=== PATIENT | female | born 1935 | race Caucasian/White ===

== ENCOUNTER 2016-11-08 18:14 | Inpatient (IN) | payer MEDICARE, OTHER ==
[~2016-11-08] VITALS: Ht 167.6 cm; Wt 65.5 kg
[~2016-11-08 18:14] MED LIST: ALDACTONE 25MG25 M1 PO; ALTACE 2.5MG T2.5 MG PO; CENTRUM SILVER1 CTB PO; COUMADIN4 MG PO; IMDUR 30MG30 MG/TAB PO; LASIX 20MG TABL20 MG PO; OSCAL 500 TAB500 MG PO; PLAVIX 75MG TAB75 MG PO; SYNTHROID0.05 MG/TA PO; TOPROL XL 50MG50 MG PO; VITAMIN D 400400 IU; ZOCOR 40MG40 MG PO
[2016-11-08 19:11] LABS: BASO % 0.3 % (0.0-2.0); EOS % 0.2 % (0-4.0); GRAN # 9.2 (1.4-6.5); GRAN % 76.1 % (42.2-75.2); HEMATOCRIT 32.3 % (37.0-47.0); HEMOGLOBIN 10.9 g/dl (12.5-16.0); LYMPH # 1.7 (1.2-3.4); LYMPH % 14.5 % (20.0-51.0); MEAN CELL VOLUME 96 fl (80.0-100.0); MEAN CORPUSCULAR HEMOGLOBIN 32 pg (27.0-31.0); MEAN CORPUSCULAR HGB CONC 34 g/dl (33.0-37.0); MEAN PLATELET VOLUME 10.2 fl (7.4-10.4); MONO % 8.5 % (1.7-9.3); PLATELET COUNT 175 K/mm3 (130-400); RED BLOOD COUNT 3.38 M/mm3 (4.10-5.30); REDCELL DISTRIBUTION WIDTH-CV 12.8 % (11.5-14.5)
[2016-11-08 19:15] LABS: INR 6.3 (0.8-3.0); PARTIAL THROMBOPLASTIN TIME 49.8 SECONDS (26.0-37.0); PROTHROMBIN TIME 73.6 SECONDS (9.7-12.8)
[2016-11-08 19:19] LABS: ADJUSTED CALCIUM 9.7 mg/dL (8.4-10.2); ALBUMIN 3.8 gm/dL (3.5-5.0); BILIRUBIN,TOTAL 0.9 mg/dL (0.0-1.0); CALCIUM 9.5 mg/dL (8.4-10.2); CREATININE, serum 1.1 mg/dL (0.52-1.25); POTASSIUM 3.6 mmol/L (3.4-5.0); TOTAL PROTEIN 6.7 gm/dL (6.4-8.2)
[2016-11-08 19:55] LABS: C-REACTIVE PROTEIN 20.4 mg/dL (0.0-0.9)
[2016-11-08 20:24] LABS: PH 6 (5-8); SQUAMOUS EPITHELIAL 0-2 /hpf; URINE APPEARANCE Clear; URINE BACTERIA None Seen /hpf; URINE BILIRUBIN Negative (NEGATIVE); URINE BLOOD 1+ (NEGATIVE); URINE COLOR Yellow; URINE GLUCOSE Negative (NEGATIVE); URINE KETONE Negative (NEGATIVE); URINE UROBILINOGEN Negative (NEGATIVE)
[2016-11-08 22:43] VITALS: BP 128/52; PULSE 51; TEMP 98.5
[2016-11-09 03:28] VITALS: BP 125/50; PULSE 71; TEMP 98.6
[2016-11-09 07:35] LABS: BASO % 0.3 % (0.0-2.0); EOS % 0.2 % (0-4.0); GRAN # 10.1 (1.4-6.5); GRAN % 79.2 % (42.2-75.2); INR 3.5 (0.8-3.0); LYMPH # 1.6 (1.2-3.4); LYMPH % 12.1 % (20.0-51.0); MEAN CELL VOLUME 97 fl (80.0-100.0); MEAN CORPUSCULAR HGB CONC 33 g/dl (33.0-37.0); MEAN PLATELET VOLUME 10.6 fl (7.4-10.4); PLATELET COUNT 179 K/mm3 (130-400); PROTHROMBIN TIME 40.4 SECONDS (9.7-12.8); RED BLOOD COUNT 3.44 M/mm3 (4.10-5.30); REDCELL DISTRIBUTION WIDTH-CV 13.1 % (11.5-14.5); WHITE BLOOD COUNT 12.8 K/mm3 (4.8-10.8)
[2016-11-09 07:41] VITALS: BP 116/35; PULSE 73; TEMP 98.8
[2016-11-09 07:48] LABS: CALCIUM 9.3 mg/dL (8.4-10.2); CREATININE, serum 0.93 mg/dL (0.52-1.25); POTASSIUM 3.7 mmol/L (3.4-5.0)
[2016-11-09 08:19] LABS: HEMATOCRIT 33.4 % (37.0-47.0); MEAN CORPUSCULAR HEMOGLOBIN 32 pg (27.0-31.0)
[2016-11-09 11:19] VITALS: BP 114/48; PULSE 83; TEMP 98.7
[2016-11-09 15:26] VITALS: BP 116/45; PULSE 66; TEMP 98.7
[2016-11-09 17:16] LABS: BASO % 0.3 % (0.0-2.0); EOS % 0.1 % (0-4.0); GRAN # 9.3 (1.4-6.5); GRAN % 79.4 % (42.2-75.2); LYMPH # 1.3 (1.2-3.4); LYMPH % 11.2 % (20.0-51.0); MEAN CELL VOLUME 96 fl (80.0-100.0); MEAN CORPUSCULAR HGB CONC 34 g/dl (33.0-37.0); MONO % 8.6 % (1.7-9.3); PLATELET COUNT 165 K/mm3 (130-400); RED BLOOD COUNT 3.05 M/mm3 (4.10-5.30); WHITE BLOOD COUNT 11.7 K/mm3 (4.8-10.8)
[2016-11-09 17:17] LABS: HEMATOCRIT 29.2 % (37.0-47.0); MEAN CORPUSCULAR HEMOGLOBIN 33 pg (27.0-31.0)
[2016-11-09 17:26] LABS: CALCIUM 8.7 mg/dL (8.4-10.2); CREATININE, serum 0.91 mg/dL (0.52-1.25); POTASSIUM 3.8 mmol/L (3.4-5.0)
[2016-11-09 19:50] VITALS: BP 133/67; PULSE 91; TEMP 98.9
[2016-11-10] VITALS (13 sets, daily range): BP systolic 111–149; BP diastolic 46–69; PULSE 69–96; TEMP 98.5–99.2
[2016-11-10 12:28] LABS: INR 2.1 (0.8-3.0); PROTHROMBIN TIME 24.1 SECONDS (9.7-12.8)
[2016-11-10 12:39] LABS: HEMATOCRIT 31.6 % (37.0-47.0); HEMOGLOBIN 10.5 g/dl (12.5-16.0)
[2016-11-11 03:49] VITALS: BP 138/63; PULSE 77; TEMP 98.4
[2016-11-11 08:13] LABS: BASO # 0.1 (0.0-0.2); BASO % 0.5 % (0.0-2.0); EOS % 0.2 % (0-4.0); GRAN # 8.7 (1.4-6.5); GRAN % 81.3 % (42.2-75.2); LYMPH # 0.9 (1.2-3.4); LYMPH % 8.7 % (20.0-51.0); MEAN CELL VOLUME 99 fl (80.0-100.0); MEAN CORPUSCULAR HGB CONC 33 g/dl (33.0-37.0); MEAN PLATELET VOLUME 10.1 fl (7.4-10.4); MONO # 0.9 (0.1-0.6); MONO % 8.8 % (1.7-9.3); PLATELET COUNT 193 K/mm3 (130-400); RED BLOOD COUNT 3.07 M/mm3 (4.10-5.30); REDCELL DISTRIBUTION WIDTH-CV 13.2 % (11.5-14.5); WHITE BLOOD COUNT 10.7 K/mm3 (4.8-10.8)
[2016-11-11 08:17] LABS: INR 2.5 (0.8-3.0); PROTHROMBIN TIME 28.9 SECONDS (9.7-12.8)
[2016-11-11 08:29] LABS: HEMATOCRIT 30.3 % (37.0-47.0); HEMOGLOBIN 9.9 g/dl (12.5-16.0); MEAN CORPUSCULAR HEMOGLOBIN 32 pg (27.0-31.0)
[2016-11-11 08:44] LABS: CALCIUM 8.5 mg/dL (8.4-10.2); CREATININE, serum 0.76 mg/dL (0.52-1.25)
[2016-11-11 08:50] VITALS: BP 143/50; PULSE 92; TEMP 97.9
[2016-11-11] MEDS ORDERED: COUMADIN4 MG PO (11:26)
[2016-11-11] MEDS ORDERED: ROBITUSSIN A-C S1 M1 PO (11:33)
[2016-11-11 12:39] VITALS: BP 135/58; PULSE 81; TEMP 97.9
[2016-11-11 17:04] VITALS: BP 139/64; PULSE 85; TEMP 98.9
[2016-11-11 20:24] VITALS: BP 134/87; PULSE 81; TEMP 98.5
[2016-11-11 22:45] VITALS: BP 138/61; PULSE 78; TEMP 98.2
[2016-11-12 04:53] VITALS: BP 127/63; PULSE 75; TEMP 98.5
[2016-11-12 07:42] VITALS: BP 126/53; PULSE 45; PULSE 85; TEMP 98.7
[2016-11-12 08:17] LABS: BASO % 0.4 % (0.0-2.0); EOS # 0.1 (0.0-0.7); EOS % 1.4 % (0-4.0); GRAN # 5.1 (1.4-6.5); LYMPH # 1.6 (1.2-3.4); LYMPH % 20.1 % (20.0-51.0); MEAN CELL VOLUME 95 fl (80.0-100.0); MEAN CORPUSCULAR HGB CONC 33 g/dl (33.0-37.0); MEAN PLATELET VOLUME 9.9 fl (7.4-10.4); MONO # 0.9 (0.1-0.6); MONO % 11.8 % (1.7-9.3); PLATELET COUNT 214 K/mm3 (130-400); RED BLOOD COUNT 3.29 M/mm3 (4.10-5.30); REDCELL DISTRIBUTION WIDTH-CV 12.9 % (11.5-14.5); WHITE BLOOD COUNT 7.7 K/mm3 (4.8-10.8)
[2016-11-12 08:19] LABS: INR 3.2 (0.8-3.0); PROTHROMBIN TIME 36.7 SECONDS (9.7-12.8)
[2016-11-12 08:26] LABS: HEMATOCRIT 31.3 % (37.0-47.0); HEMOGLOBIN 10.3 g/dl (12.5-16.0); MEAN CORPUSCULAR HEMOGLOBIN 31 pg (27.0-31.0)
[2016-11-12 08:44] LABS: CALCIUM 8.6 mg/dL (8.4-10.2); CREATININE, serum 0.82 mg/dL (0.52-1.25); POTASSIUM 3.1 mmol/L (3.4-5.0)
[2016-11-12] MEDS ORDERED: COUMADIN 3MG3 MG/TAB PO ×2 (10:31→12:33)
[2016-11-12 11:15] VITALS: BP 122/62; PULSE 85; TEMP 98.2
== END 2016-11-12 15:08 | disposition home or self-care (01) | DRG 377 ==
LOC: COL.ER 18:14 → MEDICAL 21:16
PROVIDERS: Emergency Medicine; Family Medicine; Internal Medicine; Internal Medicine Cardiovascular Disease; Internal Medicine Gastroenterology; Physician Assistant
PROC: 0DJ08ZZ Inspection of Upper Intestinal Tract, Via Natural or Artificial Opening Endoscopic (ICD-10-PCS; principal; 2016-11-10 14:00)
PROC: 0DJD8ZZ Inspection of Lower Intestinal Tract, Via Natural or Artificial Opening Endoscopic (ICD-10-PCS; 2016-11-10 14:00)
DX: K57.31 Diverticulosis of large intestine without perforation or abscess with bleeding (principal); I50.21 Acute systolic (congestive) heart failure; D62 Acute posthemorrhagic anemia; J90 Pleural effusion, not elsewhere classified; I10 Essential (primary) hypertension; I25.2 Old myocardial infarction; E87.6 Hypokalemia; E78.5 Hyperlipidemia, unspecified; J20.8 Acute bronchitis due to other specified organisms; Z79.01 Long term (current) use of anticoagulants; Z95.5 Presence of coronary angioplasty implant and graft; Z95.2 Presence of prosthetic heart valve
CPT/HCPCS: 99233-AI; 99239; G0378; J0696; J1940; J2250; J3010; J7030; Q9967

== ENCOUNTER → 2016-11-14 | Outpatient (CLI) | payer MEDICARE, OTHER ==
[~2016-11-14] MED LIST changes: +COUMADIN 3MG3 MG/TAB PO; +ROBITUSSIN A-C S1 M1 PO
[2016-11-14 13:00] LABS: INR 2.4 (0.8-3.0); PROTHROMBIN TIME 27.5 SECONDS (9.7-12.8)
== END ==
LOC: COL.LAB 11:46
PROVIDERS: Physician Assistant
DX: I48.91 Unspecified atrial fibrillation (principal); Z95.2 Presence of prosthetic heart valve; Z95.3 Presence of xenogenic heart valve

== ENCOUNTER 2020-05-04 13:09 | Emergency (ER) | payer MEDICARE, OTHER ==
[~2020-05-04] VITALS: Ht 167.6 cm; Wt 57.3 kg
[2020-05-04 13:17] VITALS: TEMP 97.4
[2020-05-04 14:11] LABS: BASO % 0.2 % (0.0-2.0); EOS % 0.1 % (0-4.0); GRAN % 79.4 % (42.2-75.2); HEMOGLOBIN 11.7 g/dl (12.5-16.0); LYMPH # 1.4 (1.2-3.4); LYMPH % 15.4 % (20.0-51.0); MEAN CELL VOLUME 99 fl (80.0-100.0); MEAN CORPUSCULAR HEMOGLOBIN 32 pg (27.0-31.0); MEAN CORPUSCULAR HGB CONC 33 g/dl (33.0-37.0); MEAN PLATELET VOLUME 10.4 fl (7.4-10.4); MONO # 0.4 (0.1-0.6); MONO % 4.7 % (1.7-9.3); PLATELET COUNT 166 K/mm3 (130-400); RED BLOOD COUNT 3.63 M/mm3 (4.10-5.30); REDCELL DISTRIBUTION WIDTH-CV 12.4 % (11.5-14.5)
[2020-05-04 14:14] LABS: HEMATOCRIT 35.8 % (37.0-47.0)
[2020-05-04 14:45] LABS: ALANINE AMINOTRANSFERASE 21 U/L (4-34); ALBUMIN 4.1 gm/dL (3.5-5.0); ALKALINE PHOSPHATASE 60 U/L (50-136); ANION GAP 4 mmol/L (7-16); AST,SGOT 35 U/L (15-37); BILIRUBIN,TOTAL 0.5 mg/dL (0.0-1.0); BLOOD UREA NITROGEN 29 mg/dL (7-17); CALCIUM 10.1 mg/dL (8.4-10.2); CARBON DIOXIDE 33 mmol/L (22-30); CHLORIDE 100 mmol/L (98-107); CREATININE, serum 1.09 (0.52-1.25); GLUCOSE 164 mg/dL (74-106); POTASSIUM 4.1 mmol/L (3.4-5.0); SODIUM 137 mmol/L (137-145); TOTAL PROTEIN 6.8 gm/dL (6.4-8.2)
[2020-05-04 14:55] LABS: C-REACTIVE PROTEIN < 0.5 mg/dL (0.0-0.9)
[2020-05-04] MEDS ORDERED: NORCO 325 MG-51 TAB PO ×2 (15:05→15:06)
[2020-05-04] MEDS ORDERED: NEURONTIN100 MG/CAP PO (15:05)
[2020-05-04 15:40] VITALS: BP 112/54; PULSE 61
== END 2020-05-04 15:42 | disposition home or self-care (01) ==
LOC: COL.ER 13:09
PROVIDERS: Family Medicine
DX: M54.41 Lumbago with sciatica, right side (principal); M79.2 Neuralgia and neuritis, unspecified; Z88.8 Allergy status to other drugs, medicaments and biological substances; Z79.01 Long term (current) use of anticoagulants